=== PATIENT | female | born 1980 | race Asian ===

== ENCOUNTER 2016-08-09 18:31 | Emergency (ER) | payer OTHER ==
[~2016-08-09] VITALS: Ht 175.3 cm; Wt 73.9 kg
[2016-08-09 20:16] VITALS: BP 170/90; TEMP 98.2
== END 2016-08-09 20:16 | disposition home or self-care (01) ==
LOC: ED 18:31
DX: S82.145A Nondisplaced bicondylar fracture of left tibia, initial encounter for closed fracture (principal); S83.512A Sprain of anterior cruciate ligament of left knee, initial encounter; W19.XXXA Unspecified fall, initial encounter; Y92.69 Other specified industrial and construction area as the place of occurrence of the external cause
CPT/HCPCS: 96372; 99283; J1885

== ENCOUNTER 2016-12-19 11:32 | Emergency (ER) | payer OTHER ==
[~2016-12-19] VITALS: Ht 177.8 cm; Wt 69.6 kg
[2016-12-19 11:35] VITALS: TEMP 99
[2016-12-19 12:27] LABS: PLATELET COUNT 266 K/uL (152-353)
[2016-12-19 12:34] LABS: POTASSIUM 3.7 mmol/L (3.6-5.2); SODIUM 135 mmol/L (136-145)
[2016-12-19 13:27] VITALS: BP 132/82
== END 2016-12-19 13:27 | disposition home or self-care (01) ==
LOC: ED 11:32
DX: J02.0 Streptococcal pharyngitis (principal); E10.9 Type 1 diabetes mellitus without complications
CPT/HCPCS: 36415; 80053; 81000; 85027; 87880; 96372; 99283; J0696; J1885

== ENCOUNTER 2017-01-03 10:25 | Outpatient (CLI) | payer OTHER ==
[2017-01-03 11:13] LABS: PLATELET COUNT 291 K/uL (152-353)
[2017-01-03 12:07] LABS: POTASSIUM 3.9 mmol/L (3.6-5.2); SODIUM 134 mmol/L (136-145)
== END 2017-01-03 19:00 | disposition home or self-care (01) ==
LOC: LABW 10:25
PROVIDERS: Internal Medicine
DX: D72.828 Other elevated white blood cell count (principal); I10 Essential (primary) hypertension; E11.9 Type 2 diabetes mellitus without complications
CPT/HCPCS: 36415; 80053; 80061; 81000; 81025; 82043; 82570; 83036; 83519; 84443; 85027

== ENCOUNTER 2017-02-14 08:16 | Emergency (ER) | payer OTHER ==
[~2017-02-14] VITALS: Ht 177.8 cm; Wt 70.3 kg
[2017-02-14 08:20] VITALS: TEMP 98
[2017-02-14 09:45] LABS: PLATELET COUNT 262 K/uL (152-353)
[2017-02-14 10:03] LABS: SODIUM 132 mmol/L (136-145)
[2017-02-14 10:45] VITALS: BP 150/69
== END 2017-02-14 10:49 | disposition home or self-care (01) ==
LOC: ED 08:16
PROVIDERS: Emergency Medicine
DX: E11.65 Type 2 diabetes mellitus with hyperglycemia (principal); Z91.14 Patient's other noncompliance with medication regimen
CPT/HCPCS: 36415; 80053; 80307; 81000; 82150; 83036; 84702; 85027; 96360; 96374; 96375; 99284; G0479; J2405

== ENCOUNTER 2017-03-01 22:26 | Emergency (ER) | payer OTHER ==
[~2017-03-01] VITALS: Ht 177.8 cm; Wt 71.2 kg
[2017-03-01 23:03] VITALS: BP 163/94; TEMP 97.9
== END 2017-03-01 23:04 | disposition home or self-care (01) ==
LOC: ED 22:26
DX: R21 Rash and other nonspecific skin eruption (principal)
CPT/HCPCS: 99281

== ENCOUNTER 2017-09-22 17:00 | Emergency (ER) | payer OTHER ==
[~2017-09-22] VITALS: Ht 177.8 cm; Wt 70.8 kg
[2017-09-22 19:37] VITALS: BP 148/86; TEMP 98.9
== END 2017-09-22 19:37 | disposition home or self-care (01) ==
LOC: ED 17:00
DX: G43.909 Migraine, unspecified, not intractable, without status migrainosus (principal)
CPT/HCPCS: 96372; 99283; J1885; J2405; J3030

== ENCOUNTER 2017-11-07 15:33 | Outpatient (CLI) | payer OTHER | END 2017-11-07 19:42 | disposition home or self-care (01) | LOC: CT 15:33 | DX: R31.9 Hematuria, unspecified (principal) ==

== ENCOUNTER 2017-11-11 10:44 | Outpatient (CLI) | payer OTHER ==
[2017-11-11 11:20] LABS: PLATELET COUNT 272 K/uL (152-353)
[2017-11-11 11:37] LABS: POTASSIUM 4.6 mmol/L (3.6-5.2)
== END 2017-11-11 20:22 | disposition home or self-care (01) ==
LOC: LABW 10:44
PROVIDERS: Internal Medicine
DX: E11.9 Type 2 diabetes mellitus without complications (principal)
CPT/HCPCS: 36415; 80053; 80061; 81025; 82043; 82570; 83036; 85027

== ENCOUNTER 2018-01-03 09:53 | Outpatient (CLI) | payer OTHER | END 2018-01-03 19:23 | disposition home or self-care (01) | LOC: LABW 09:53 | DX: N91.4 Secondary oligomenorrhea (principal) | CPT/HCPCS: 36415; 82670; 83001; 83002; 84403; 84443 ==

== ENCOUNTER 2018-01-17 09:38 | Outpatient (CLI) | payer OTHER | END 2018-01-17 19:38 | disposition home or self-care (01) | LOC: MRI 09:38 → CT 09:38 → MRI 19:38 | DX: N28.1 Cyst of kidney, acquired (principal); N28.89 Other specified disorders of kidney and ureter | CPT/HCPCS: 36415; 82565; 84520; A9576 ==

== ENCOUNTER 2018-04-03 10:41 | Emergency (ER) | payer OTHER ==
[~2018-04-03] VITALS: Ht 177.8 cm; Wt 71.7 kg
[2018-04-03 11:45] LABS: PLATELET COUNT 267 K/uL (152-353)
[2018-04-03 15:00] VITALS: BP 128/79; TEMP 98
== END 2018-04-03 15:00 | disposition home or self-care (01) ==
LOC: ED 10:41
DX: E11.65 Type 2 diabetes mellitus with hyperglycemia (principal)
CPT/HCPCS: 36415; 80053; 81000; 81002; 82962; 83036; 85027; 96374; 99284; J1815

== ENCOUNTER 2018-11-24 20:25 | Emergency (ER) | payer OTHER ==
[~2018-11-24] VITALS: Ht 177.8 cm; Wt 71.7 kg
[2018-11-24 21:20] VITALS: BP 117/78; TEMP 98.4
== END 2018-11-24 21:20 | disposition home or self-care (01) ==
LOC: ED 20:25
DX: H92.02 Otalgia, left ear (principal)
CPT/HCPCS: 99281

== ENCOUNTER 2019-02-20 11:14 | Outpatient (CLI) | payer OTHER | END 2019-02-20 21:30 | disposition home or self-care (01) | LOC: RAD 11:14 | DX: R07.9 Chest pain, unspecified (principal) ==

== ENCOUNTER 2019-05-14 18:29 | Emergency (ER) | payer OTHER ==
[~2019-05-14] VITALS: Ht 177.8 cm; Wt 71.7 kg
[2019-05-14 19:05] LABS: PLATELET COUNT 282 K/uL (152-353)
[2019-05-14 19:16] LABS: POTASSIUM 3.4 mmol/L (3.6-5.2); SODIUM 134 mmol/L (136-145)
[2019-05-14 21:40] VITALS: BP 132/99; TEMP 97.3
== END 2019-05-14 21:40 | disposition home or self-care (01) ==
LOC: ED 18:29
PROVIDERS: Emergency Medicine
DX: R07.89 Other chest pain (principal); E11.65 Type 2 diabetes mellitus with hyperglycemia; E86.0 Dehydration
CPT/HCPCS: 36415; 80053; 82550; 82962; 83690; 83880; 84484; 85027; 93005; 96360; 99284

== ENCOUNTER 2020-01-20 13:43 | Emergency (ER) | payer OTHER ==
[~2020-01-20] VITALS: Ht 177.8 cm; Wt 71.7 kg
[2020-01-20 14:07] VITALS: TEMP 98.3
[2020-01-20 16:07] VITALS: BP 144/84
== END 2020-01-20 16:08 | disposition home or self-care (01) ==
LOC: ED 13:43
DX: M25.511 Pain in right shoulder (principal)
CPT/HCPCS: 96372; 99283; J1885

== ENCOUNTER 2020-02-08 09:33 | Emergency (ER) | payer OTHER ==
[~2020-02-08] VITALS: Ht 177.8 cm; Wt 65.8 kg
[2020-02-08 09:37] VITALS: TEMP 98
[2020-02-08 10:11] LABS: PLATELET COUNT 271 K/uL (152-353)
[2020-02-08 10:21] LABS: POTASSIUM 3.9 mmol/L (3.6-5.2); SODIUM 140 mmol/L (136-145)
[2020-02-08 10:37] LABS: PARTIAL THROMBOPLASTIN TIME 22.8 SECONDS (24.5-33.6)
[2020-02-08 11:00] VITALS: BP 141/90
== END 2020-02-08 11:10 | disposition home or self-care (01) ==
LOC: ED 09:33
PROVIDERS: Hospitalist
DX: I16.0 Hypertensive urgency (principal); G43.909 Migraine, unspecified, not intractable, without status migrainosus
CPT/HCPCS: 36415; 80053; 82550; 82553; 83880; 84484; 85027; 85610; 85730; 93005; 96374; 96375; 99284; J0360; J1200; J1885; J2405

== ENCOUNTER 2020-02-11 13:14 | Emergency (ER) | payer OTHER ==
[~2020-02-11] VITALS: Ht 180.3 cm; Wt 65.8 kg
[2020-02-11 13:14] VITALS: TEMP 99.7
[2020-02-11 13:53] LABS: PLATELET COUNT 238 K/uL (152-353)
[2020-02-11 15:05] VITALS: BP 156/95
== END 2020-02-11 15:05 | disposition home or self-care (01) ==
LOC: ED 13:19
PROVIDERS: Hospitalist
DX: R10.84 Generalized abdominal pain (principal); E87.6 Hypokalemia
CPT/HCPCS: 80048; 81000; 81025; 85027; 96360; 96376; 99284; J1885; J2405

== ENCOUNTER 2020-02-12 17:32 | Outpatient (CLI) | payer OTHER ==
[2020-02-12 18:24] LABS: POTASSIUM 4.2 mmol/L (3.6-5.2)
== END 2020-02-12 19:06 | disposition home or self-care (01) ==
LOC: LAB 17:32
PROVIDERS: Nurse Practitioner
DX: I10 Essential (primary) hypertension (principal); E87.6 Hypokalemia; R53.83 Other fatigue
CPT/HCPCS: 80053; 82550

== ENCOUNTER 2020-02-15 09:20 | Outpatient (CLI) | payer OTHER | END 2020-02-15 19:10 | disposition home or self-care (01) | LOC: LAB 09:20 | DX: U07.1 COVID-19 (principal); R53.83 Other fatigue; R06.00 Dyspnea, unspecified; Z11.59 Encounter for screening for other viral diseases | CPT/HCPCS: 87635; G2023; U0003 ==

== ENCOUNTER 2020-02-17 14:46 | Emergency (ER) | payer OTHER ==
[~2020-02-17] VITALS: Ht 180.3 cm; Wt 63.5 kg
[2020-02-17 15:32] LABS: PLATELET COUNT 239 K/uL (152-353)
[2020-02-17 15:47] LABS: POTASSIUM 3.8 mmol/L (3.6-5.2)
[2020-02-17 16:05] VITALS: BP 141/98; TEMP 98.5
== END 2020-02-17 16:05 | disposition home or self-care (01) ==
LOC: ED 14:46
PROVIDERS: Family Medicine
DX: J40 Bronchitis, not specified as acute or chronic (principal)
CPT/HCPCS: 80053; 85027; 87502; 87651; 99283

== ENCOUNTER 2020-03-01 08:11 | Outpatient (CLI) | payer OTHER | END 2020-03-01 20:11 | disposition home or self-care (01) | LOC: LAB 08:11 | DX: Z86.19 Personal history of other infectious and parasitic diseases (principal); Z11.59 Encounter for screening for other viral diseases | CPT/HCPCS: 87635; G2023; U0003 ==

== ENCOUNTER 2020-03-18 14:49 | Emergency (ER) | payer OTHER ==
[~2020-03-18] VITALS: Ht 180.3 cm; Wt 63.5 kg
[2020-03-18 16:12] LABS: PLATELET COUNT 291 K/uL (152-353)
[2020-03-18 17:40] VITALS: BP 151/89; TEMP 98.7
== END 2020-03-18 17:40 | disposition home or self-care (01) ==
LOC: ED 14:49
PROVIDERS: Family Medicine
DX: I10 Essential (primary) hypertension (principal); E87.6 Hypokalemia
CPT/HCPCS: 80053; 81000; 85027; 99283

== ENCOUNTER 2020-03-22 15:35 | Outpatient (CLI) | payer OTHER ==
[2020-03-22 16:06] LABS: POTASSIUM 3.2 mmol/L (3.6-5.2)
== END 2020-03-22 22:49 | disposition home or self-care (01) ==
LOC: LABW 15:35
PROVIDERS: ATTEND Nurse Practitioner
DX: E13.65 Other specified diabetes mellitus with hyperglycemia (principal); Z86.39 Personal history of other endocrine, nutritional and metabolic disease
CPT/HCPCS: 36415; 80048; 82607; 83036; 83735

== ENCOUNTER 2020-03-25 10:05 | Outpatient (CLI) | payer OTHER | END 2020-03-25 19:30 | disposition home or self-care (01) | LOC: RESP 10:05 | PROVIDERS: ATTEND Nurse Practitioner | DX: R06.00 Dyspnea, unspecified (principal) ==

== ENCOUNTER 2020-11-03 08:51 | Outpatient (CLI) | payer OTHER | END 2020-11-03 23:59 | disposition home or self-care (01) | LOC: RAD 08:51 | PROVIDERS: ATTEND Internal Medicine | DX: M25.562 Pain in left knee (principal); I10 Essential (primary) hypertension; E11.9 Type 2 diabetes mellitus without complications ==

== ENCOUNTER 2021-03-29 08:32 | Outpatient (CLI) | payer OTHER | END 2021-03-29 20:12 | disposition home or self-care (01) | LOC: MAMMO 08:32 | PROVIDERS: ATTEND Internal Medicine | DX: Z12.31 Encounter for screening mammogram for malignant neoplasm of breast (principal) ==

== ENCOUNTER 2021-04-11 08:31 | Outpatient (CLI) | payer OTHER | END 2021-04-11 18:55 | disposition home or self-care (01) | LOC: MAMMO 08:31 | PROVIDERS: ATTEND Internal Medicine | DX: R92.8 Other abnormal and inconclusive findings on diagnostic imaging of breast (principal) ==

== ENCOUNTER 2021-06-14 10:23 | Outpatient (CLI) | payer OTHER | END 2021-06-14 18:58 | disposition home or self-care (01) | LOC: RAD 10:23 | PROVIDERS: ATTEND Internal Medicine | DX: M54.2 Cervicalgia (principal); M54.50 Low back pain, unspecified ==

== ENCOUNTER 2021-07-31 15:07 | Emergency (ER) | payer OTHER ==
[~2021-07-31] VITALS: Ht 172.7 cm; Wt 65.3 kg
[2021-07-31 17:10] VITALS: BP 151/85; TEMP 97.5
== END 2021-07-31 17:10 | disposition home or self-care (01) ==
LOC: ED 15:07
DX: S16.1XXA Strain of muscle, fascia and tendon at neck level, initial encounter (principal); V49.49XA Driver injured in collision with other motor vehicles in traffic accident, initial encounter; Y93.89 Activity, other specified; Y92.89 Other specified places as the place of occurrence of the external cause; S39.012A Strain of muscle, fascia and tendon of lower back, initial encounter
CPT/HCPCS: 96372; 99283; J1885

== ENCOUNTER 2021-09-10 10:44 | Emergency (ER) | payer OTHER ==
[~2021-09-10] VITALS: Ht 172.7 cm; Wt 68.0 kg
[2021-09-10 10:55] VITALS: TEMP 98.2
[2021-09-10 11:19] LABS: PLATELET COUNT 300 K/uL (152-353)
[2021-09-10 11:21] LABS: POTASSIUM 3.9 mmol/L (3.6-5.2)
[2021-09-10 11:27] LABS: PARTIAL THROMBOPLASTIN TIME 25.2 SECONDS (24.5-33.6)
[2021-09-10 12:54] VITALS: BP 160/88
== END 2021-09-10 12:55 | disposition home or self-care (01) ==
LOC: ED 10:44
PROVIDERS: Hospitalist
DX: R42 Dizziness and giddiness (principal)
CPT/HCPCS: 36415; 80053; 80320; 81025; 82550; 82948; 83880; 84484; 85027; 85610; 85730; 93005; 96360; 99284

== ENCOUNTER 2022-01-02 14:26 | Emergency (ER) | payer OTHER ==
[~2022-01-02] VITALS: Ht 177.8 cm; Wt 68.0 kg
[2022-01-02 14:40] VITALS: TEMP 98.8
[2022-01-02 15:00] LABS: PLATELET COUNT 269 K/uL (152-353)
[2022-01-02 15:09] LABS: POTASSIUM 3.5 mmol/L (3.6-5.2)
[2022-01-02 15:35] VITALS: BP 140/87
== END 2022-01-02 15:35 | disposition home or self-care (01) ==
LOC: ED 14:26
PROVIDERS: Emergency Medicine
DX: S90.122A Contusion of left lesser toe(s) without damage to nail, initial encounter (principal); E11.649 Type 2 diabetes mellitus with hypoglycemia without coma; Z79.4 Long term (current) use of insulin; L30.8 Other specified dermatitis; R21 Rash and other nonspecific skin eruption; B00.1 Herpesviral vesicular dermatitis; B00.89 Other herpesviral infection; W22.03XA Walked into furniture, initial encounter; Y92.89 Other specified places as the place of occurrence of the external cause
CPT/HCPCS: 36415; 80048; 85027; 99283

== ENCOUNTER 2022-03-28 10:31 | Emergency (ER) | payer OTHER ==
[~2022-03-28] VITALS: Ht 175.3 cm; Wt 59.4 kg
[2022-03-28 11:16] LABS: PLATELET COUNT 264 K/uL (152-353)
[2022-03-28 11:30] LABS: POTASSIUM 4.7 mmol/L (3.6-5.2)
[2022-03-28 13:10] VITALS: BP 132/88; TEMP 98
== END 2022-03-28 13:10 | disposition home or self-care (01) ==
LOC: ED 10:31
PROVIDERS: Emergency Medicine
DX: M54.59 Other low back pain (principal); N28.89 Other specified disorders of kidney and ureter
CPT/HCPCS: 80053; 81002; 85027; 96360; 96374; 99284; J1885

== ENCOUNTER 2022-08-23 10:43 | Emergency (ER) | payer OTHER ==
[~2022-08-23] VITALS: Ht 175.3 cm; Wt 59.0 kg
[2022-08-23 10:51] VITALS: TEMP 98.3
[2022-08-23 12:39] LABS: PLATELET COUNT 264 K/uL (152-353)
[2022-08-23 12:52] LABS: POTASSIUM 4.1 mmol/L (3.6-5.2)
[2022-08-23 13:15] VITALS: BP 158/78
== END 2022-08-23 13:15 | disposition home or self-care (01) ==
LOC: ED 10:43
PROVIDERS: Emergency Medicine
DX: R10.32 Left lower quadrant pain (principal); R93.5 Abnormal findings on diagnostic imaging of other abdominal regions, including retroperitoneum; E11.65 Type 2 diabetes mellitus with hyperglycemia; Z79.4 Long term (current) use of insulin
CPT/HCPCS: 80048; 81002; 81025; 85027; 99283; J1885

== ENCOUNTER 2022-09-03 12:53 | Outpatient (CLI) | payer OTHER | END 2022-09-03 20:43 | disposition home or self-care (01) | LOC: MRI 12:53 | PROVIDERS: ATTEND Internal Medicine | DX: E27.8 Other specified disorders of adrenal gland (principal) | CPT/HCPCS: A9576 ==

== ENCOUNTER 2022-11-30 05:13 | Emergency (ER) | payer OTHER ==
[~2022-11-30] VITALS: Ht 177.8 cm; Wt 54.4 kg
[2022-11-30 05:53] LABS: PLATELET COUNT 280 K/uL (152-353)
[2022-11-30 06:12] LABS: POTASSIUM 4.2 mmol/L (3.6-5.2); SODIUM 137 mmol/L (136-145)
[2022-11-30 08:42] VITALS: BP 160/91; TEMP 98.2
== END 2022-11-30 08:42 | disposition short-term general hospital (02) ==
LOC: ED 05:13
PROVIDERS: Family Medicine
DX: K37 Unspecified appendicitis (principal); R10.9 Unspecified abdominal pain; F12.90 Cannabis use, unspecified, uncomplicated
CPT/HCPCS: 36415; 80053; 81002; 81025; 82150; 83605; 83690; 85027; 86140; 87040; 96361; 96365; 96366; 96375; 99284; J0696; J1170; J2270; J2405; J3490; Q9963